=== PATIENT | female | born 1995 | race African-American/Black ===

== ENCOUNTER → 2016-10-22 | Outpatient (CLI) | payer OTHER ==
--- NOTE | 2016-10-22 11:55 | REP ---
Clinical: Left lower quadrant pain and dysuria. Technique: Single supine view of the abdomen and pelvis. Findings: Bowel gas pattern is nonspecific. No organomegaly. No abnormal calcifications. Skeletal structures are intact. Impression: Normal abdominal radiograph. Signed by Shay Darnell MD 10/22/2016 11:46 A
== END ==
LOC: M LRY 11:31
PROVIDERS: ATTEND Physician Assistant
DX: R10.32 Left lower quadrant pain (principal); R30.0 Dysuria
CPT/HCPCS: 74000; 87086; G0463

== ENCOUNTER → 2016-10-22 | Outpatient (REF) | payer OTHER | LOC: M SFHCLERA 12:02 | PROVIDERS: ATTEND Physician Assistant | DX: R10.32 Left lower quadrant pain (principal) ==

== ENCOUNTER 2017-01-07 19:00 | Emergency (ER) | payer OTHER ==
[~2017-01-07] VITALS: Ht 170.2 cm; Wt 82.7 kg
[2017-01-07] MEDS ORDERED: SING10TA32 PO (19:16)
[2017-01-07] MEDS ORDERED: CLAR1TAB2 PO (19:16)
[2017-01-07] MEDS ORDERED: THERTAB PO (19:16)
[2017-01-07] MEDS ORDERED: PROAAER10 INH (19:16)
[2017-01-07] MEDS ORDERED: BENZ200C53 PO (21:10)
[2017-01-07] MEDS ORDERED: AUGM875T28 PO (21:10)
[2017-01-07] MEDS ORDERED: FLON1SPR (21:10)
[2017-01-07] MEDS ORDERED: BENZONATATE 100 MG CAP PO ONE (21:15)
[2017-01-07 21:23] VITALS: BP 112/68
== END 2017-01-07 21:26 | disposition home or self-care (01) ==
LOC: M ED 19:00
DX: J06.9 Acute upper respiratory infection, unspecified (principal); Z72.0 Tobacco use